=== PATIENT | female | born 1985 | race Caucasian/White ===

== ENCOUNTER → 2016-11-10 | Outpatient (CLI) | payer BC ==
--- NOTE | 2016-11-10 18:55 | CT ---
EXAMINATION TYPE: CT abdomen pelvis w con DATE OF EXAM: 11/10/2016 6:50 PM COMPARISON: NONE HISTORY: Left lower quadrant pain x 6 months +. History of ovarian cysts. Pain in tailbone after preg adal. CT DLP: 300.00 mGycm CONTRAST: CT scan of the abdomen and pelvis is performed with Oral Contrast and with IV Contrast, patient injec alona with 100 mL of Omnipaque 300. FINDINGS: LUNG BASES-: No visible nodule. No infiltrate. LIVER/GB: No calcified gallstones. No space occupying hepatic lesion. Biliary tree is of normal ca liber. PANCREAS: No inflammation. No distinct mass. SPLEEN: No splenic enlargement. No lesion seen. ADRENALS: No nodule. No thickening. KIDNEYS/BLADDER: No hydronephrosis. No nephrolithiasis. No disctinct renal mass. Urinary bladder g rossly unremarkable. BOWEL: Normal appendix. Normal bowel caliber. No inflammation. GENITAL ORGANS: Small ovarian follicles noted. No masses detected. LYMPH NODES: No greater than 1cm abdominal or pelvic lymph nodes are appreciated. AORTA: No significant abnormality. OSSEOUS STRUCTURES: No significant abnormality is seen. OTHER: No significant additional abnormality is seen. IMPRESSION: 1. No significant abnormality appreciated.
== END | disposition home or self-care (01) ==
LOC: RADCTMAIN 18:19
PROVIDERS: ATTEND Family Medicine
DX: R10.32 Left lower quadrant pain (principal)
CPT/HCPCS: 74177; Q9967

== ENCOUNTER → 2019-07-02 | Outpatient (CLI) | payer BC ==
--- NOTE | 2019-07-02 13:21 | XR ---
EXAMINATION TYPE: XR chest 2V DATE OF EXAM: 07/02/2019 COMPARISON: Chest x-ray June 02, 2015 HISTORY: Chest pain and tightness for one week TECHNIQUE: Frontal and lateral views of the chest are obtained. FINDINGS: There is no focal air space opacity, pleural effusion, or pneumothorax seen. The cardiac silhouette size is within normal limits. The osseous structures are intact. IMPRESSION: No acute process.
[2019-07-02 13:53] LABS: Basophils # (A) 0.1 k/uL (0-0.2); Basophils % (A) 1 %; Eosinophils # (A) 0.1 k/uL (0-0.7); Eosinophils % (A) 1 %; HGB 14.5 gm/dL (11.4-16.0); Lymphocytes # (A) 1.4 k/uL (1.0-4.8); Lymphocytes % (A) 19 %; MCH 30.7 pg (25.0-35.0); MCHC 34.5 g/dL (31.0-37.0); MCV 89.2 fL (80.0-100.0); Mean Platelet Volume 7.4; Monocytes # (A) 0.2 k/uL (0-1.0); Monocytes % (A) 3 %; Neutrophils # (A) 5.8 k/uL (1.3-7.7); Neutrophils % (A) 75 %; Platelet Count 256 k/uL (150-450); RBC 4.71 m/uL (3.80-5.40); RDW 13.8 % (11.5-15.5); WBC 7.7 k/uL (3.8-10.6)
[2019-07-02 14:05] LABS: ALT 15 U/L (9-52); AST 23 U/L (14-36); African American GFR (CKD) >90 (>60 ml/min/1.73 sqM); Albumin 5.1 g/dL (3.5-5.0); Albumin/Globulin Ratio 1.6; Alkaline Phosphatase 92 U/L (38-126); Anion Gap 11 mmol/L; Blood Urea Nitrogen 15 mg/dL (7-17); Calcium 10.1 mg/dL (8.4-10.2); Carbon Dioxide 27 mmol/L (22-30); Chloride 101 mmol/L (98-107); Cholesterol 227 mg/dL (<200); Globulin 3.1 g/dL; Glucose 102 mg/dL (74-99); HDL Cholesterol 72 mg/dL (40-60); LDL Cholesterol,Calculated 137 mg/dL (0-99); Potassium 4.1 mmol/L (3.5-5.1); Sodium 139 mmol/L (137-145); Total Bilirubin 0.5 mg/dL (0.2-1.3); Total Protein 8.2 g/dL (6.3-8.2); Triglycerides 90 mg/dL (<150); Uric Acid 5.5 mg/dL (3.7-7.4)
[2019-07-02 14:21] LABS: T4, Free (Free Thyroxine) 1.35 ng/dL (0.78-2.19)
[2019-07-02 15:12] LABS: Erythrocyte Sedimentation Rate 2 mm/hr (0-20)
[2019-07-02 20:16] LABS: Hemoglobin A1C 5.2 % (4.0-6.0)
== END | disposition home or self-care (01) ==
LOC: LABWHC1 12:58
PROVIDERS: ATTEND Family Medicine
DX: R07.89 Other chest pain (principal); Z13.220 Encounter for screening for lipoid disorders
CPT/HCPCS: 36415; 71046; 80053; 80061; 83036; 84439; 84443; 84479; 84484; 84550; 85025; 85379; 85652

== ENCOUNTER → 2020-08-26 | Outpatient (CLI) | payer BC ==
--- NOTE | 2020-08-27 07:14 | XR ---
EXAMINATION TYPE: XR sinus DATE OF EXAM: 08/26/2020 CLINICAL HISTORY: Facial pain , headache. TECHNIQUE: Mora, Kay, and lateral image of the skull are obtained. COMPARISON: None. FINDINGS: There is mucosal thickening involving the maxillary sinuses. No air-fluid levels. Osseous s tructures intact. IMPRESSION: Correlate for chronic maxillary sinusitis.
== END | disposition home or self-care (01) ==
LOC: RAD 18:23
PROVIDERS: ATTEND Family Medicine
DX: J32.9 Chronic sinusitis, unspecified (principal); J30.2 Other seasonal allergic rhinitis; H65.01 Acute serous otitis media, right ear
CPT/HCPCS: 70220